=== PATIENT | female | born 1985 | race Caucasian/White ===

== ENCOUNTER → 2018-07-18 09:35 | Outpatient (CLI) | payer OTHER, MEDICAID, SELFPAY ==
--- NOTE | 2018-07-18 | DI.US.S_ITS ---
PROCEDURE: US OB <= 14 WEEKS FETUS INDICATIONS: SIZE AND DATES OUTSIDE/PRIOR DATING DATA: Last menstrual period (LMP): 05/27/18. LMP-based estimated date of delivery (KADEEM): 03/03/19. First dating scan (date and location): 07/18/18. Estimated date of delivery (KADEEM) from first dating scan: 03/06/18. TECHNIQUE: Real-time scanning was performed of the fetus and maternal pelvic organs, with image documentation. Endovaginal scanning was also performed to better visualize the fetus and maternal ovaries. COMPARISON: None. FINDINGS: Embryo: Sarita-rump length measures 1.0 cm corresponding to 7 weeks 0 days. Heart rate measures 132 beats per minute. Perigestational site bleed side measuring 1.7 x 1.2 x 2.7 cm. Measurement variability in dating: +/- 4 weeks by LMP, +/- 7 days by mean sac diameter (use before 6 weeks gestation if crown-rump length not able to be measured), +/- 5 days by crown-rump length (up to 8 weeks 6 days gestation), +/- 7 days by crown-rump length (up to 13 weeks 6 days gestation). Maternal organs: Ovaries within normal limits, with right corpus luteal cyst measuring roughly 2.4 cm. Limited images through the kidneys demonstrate no hydronephrosis. IMPRESSION: 1. 7.0 day single living IUP and perigestational sac bleed present. Dictated by: Sanjiv Mederos A Interpreted: Alma Summers MD on 07/18/2018 at 13:19 Approved by: Alma Summers MD, PhD on 07/18/2018 at 13:26
== END ==
PROVIDERS: Family Provider Family Medicine; PCP Family Medicine; Visit Provider Family Medicine
DX: Z34.91 Encounter for supervision of normal pregnancy, unspecified, first trimester (principal); Z3A.01 Less than 8 weeks gestation of pregnancy
CPT/HCPCS: 76801; 76830

== ENCOUNTER → 2018-10-11 10:37 | Outpatient (CLI) | payer OTHER, MEDICAID, SELFPAY ==
--- NOTE | 2018-10-11 | DI.US.S_ITS ---
PROCEDURE: US OB >= 14 WEEKS FETUS INDICATIONS: ANATOMY SCAN OUTSIDE/PRIOR DATING DATA: Last menstrual period (LMP): 05/27/18. LMP-based estimated date of delivery (KADEEM): 03/03/19. First dating scan (date and location): 07/18/18 [facility]. Estimated date of delivery (KADEEM) from first dating scan: 03/06/19. TECHNIQUE: Real-time scanning was performed of the fetus, with image documentation and biometric measurements. Endovaginal scanning: None COMPARISON: [facility], , OB <= 14 WEEKS FETUS, 07/18/2018, 10:02. FINDINGS: General: A single living intrauterine gestation is present. Presentation: Breech Placenta: Placental position is posterior, without previa. Amniotic fluid index: 13.4 cm, normal range is 5-24 cm. heart rate: 147 beats per minute. Maternal cervical canal: 4.1 cm long. Normal lower limit is 2.5 cm. biometrics: Biparietal diameter: 4.7 cm, 20 week one day Head circumference: 17.2 cm, 19 weeks 6 days Abdominal circumference: 14.8 cm, 20 weeks zero day Femur length: 3.3 cm, 20 weeks one day Estimated gestational age from initial scan: not applicable. Composite gestational age from present scan: 20 week zero day Estimated weight and percentile: 330 g, 92% Measurement variability for biometric dating: +/- 7 days from 14 weeks to 15 weeks 6 days gestation, +/- 10 days from 16 weeks to 21 weeks 6 days gestation, +/- 2 weeks from 22 weeks to 27 weeks 6 days gestation, +/- 3 weeks for 28 weeks gestation or later. weight reference: 4500 g or EFW >90/95% is considered macrosomia or large for gestational age. EFW <10% is small for gestational age. EFW 5% or less is considered intra-uterine growth restriction. Anatomic survey: Neuro: Ventricles are non-dilated at less than 10 mm. Cisterna magna is normal at 3-11 mm. Cerebellum is normal in size and morphology. Nuchal skin fold: Normal at less than 6 mm between 14-21 weeks gestational age. Face: Nose and lips, facial profile are normal. Spine: No evidence for spina bifida. Heart: 4-chambered heart is present, with normal ventricular outflow tracts. Diaphragm: Diaphragm is intact. Stomach: Left-sided stomach is present. Kidneys: No hydronephrosis. Normal is less than 5 mm in 2nd trimester, less than 7 mm in 3rd trimester. Cord: 3-vessel cord has orthotopic insertion. Bladder: Normal in size. Extremities: All 4 extremities identified. Again noted is mild to moderate maternal right-sided hydronephrosis. IMPRESSION: 1. Single with fetus in breech presentation. heart rate is 147 beats per minute. Normal growth with normal anatomy. 2. Mild to moderate maternal right hydronephrosis. Dictated by: Bonilla Schroeder M.D. on 10/11/2018 at 12:19 Approved by: Bonilla Schroeder M.D. on 10/11/2018 at 12:27
== END ==
PROVIDERS: Family Provider Family Medicine; PCP Family Medicine; Visit Provider Family Medicine
DX: Z36.89 Encounter for other specified antenatal screening (principal); Z3A.20 20 weeks gestation of pregnancy; O99.89 Other specified diseases and conditions complicating pregnancy, childbirth and the puerperium; N13.30 Unspecified hydronephrosis
CPT/HCPCS: 76811

== ENCOUNTER 2018-11-22 09:52 | Emergency (ER) | payer OTHER, MEDICAID, SELFPAY ==
[2018-11-22 10:00] VITALS: BP 114/74; PULSE 85; RESP 15; TEMP 36.7; O2SAT 100; BMI 27.4
--- NOTE | 2018-11-22 10:32 | ED_ITS ---
HPI - Nausea/Vomiting/Diarrhea General Chief complaint: Nausea/Vomiting/Diarrhea Stated complaint: VOMITING DIARRHEA Time Seen by Provider: 11/22/18 10:19 Source: patient Mode of arrival: ambulatory Limitations: no limitations History of Present Illness HPI Narrative: Patient is a 33-year-old female presenting with vomiting and diarrhea. This is been ongoing since yesterday. She is also 25 weeks she has some abdominal cramping but does not feel like it is uterine. She has no vaginal bleeding. He does have some right-sided pain but she has had persistent ongoing right-sided pain because she says her ureter is kinked. She denies any fever or chills MD complaint: nausea, vomiting and diarrhea Onset (ago): day(s) Description of Vomiting: watery Description of Diarrhea: watery Associated Abdominal Pain: Yes Related Data Home Medications Medication Instructions Recorded Confirmed PNV cmb#95-ferrous fumarate-FA 1 tab PO QDAY #0 06/09/12 11/22/18 [] Vitamin B-12 1 tab PO DAILY 11/22/18 11/22/18 Vitamin D3 1 cap PO DAILY 11/22/18 11/22/18 iron 1 tab PO DAILY 11/22/18 11/22/18 sertraline 100 mg PO DAILY 11/22/18 11/22/18 Previous Rx's Medication Instructions Recorded ondansetron 4 mg PO Q6-8H PRN #10 tab 11/22/18 Allergies Allergy/AdvReac Type Severity Reaction Status Date / Time tramadol [TRAMADOL] AdvReac Unknown Verified 11/22/18 10:00 Review of Systems Review of Systems GENERAL: Denies chills, fatigue, malaise, fever, sweats, travel HEENT: Denies sinus pain, ear pain, sore throat, difficulty swallowing, neck pain RESPIRATORY: Denies dyspnea, cough, wheezing, hemoptysis, sputum. CARDIOVASCULAR: Denies chest pain, palpitations, orthopnea, edema GASTROINTESTINAL: See HPI : Denies dysuria, frequency, incontinence, hematuria, urinary retention, flank pain. MUSCULOSKELETAL: Denies weakness, joint pain, or bony pain SKIN: No rash, no erythema, no pruritus NEUROLOGIC: Denies weakness, dizziness, headache, numbness, change in speech, confusion PSYCHIATRIC: No concerning psychosocial issues. 12 point review of systems is negative except for those stated above and HPI PFSH Social History Smoking Status: Never smoker Social History Smoking Status: Never smoker Exam Initial Vital Signs Initial Vital Signs: Vital Signs Temperature 98.1 F 11/22/18 10:00 Pulse Rate 85 11/22/18 10:00 Respiratory Rate 15 11/22/18 10:00 Blood Pressure 114/74 11/22/18 10:00 Pulse Oximetry 100 11/22/18 10:00 GENERAL: Well-appearing, well-nourished and in no acute distress. HEENT: Head atraumatic,EOMI, pupils reactive, CARDIOVASCULAR: Regular rate and rhythm without murmurs, rubs or gallops. RESPIRATORY: Breath sounds equal bilaterally, no wheezes rales or rhonchi. ABDOMEN: Soft gravid, mild right-sided no right upper quadrant pain no guarding no rebound mild right flank pain : No CVA tenderness EXTREMITIES: Normal range of motion, no clubbing or edema. Neurovascularly intact NEUROLOGICAL: Alert and oriented x4.Normal gait and speech. Cranial nerves II through XII grossly intact. SKIN: Warm, dry, no laceration, no petechiae, no rashes or lesions. Course Orders Ordered: ED Orders 11/22/18 10:40 Complete Blood Count AUTO DIFF Stat Comprehensive Metabolic Panel Stat Lipase Stat Discontinued Medications Sodium Chloride (Normal Saline 0.9%) 1,000 mls @ 1,000 mls/hr IV CONT VENTURA Last Infusion: 11/22/18 12:08 Dose: 0 mls/hr Admin: 11/22/18 10:59 Dose: 1,000 mls/hr Ondansetron HCl (Zofran) 4 mg IV NOW ONE Stop: 11/22/18 10:24 Last Admin: 11/22/18 10:59 Dose: 4 mg Vital Signs - 8 hr 11/22/18 11:09 11/22/18 12:30 11/22/18 14:45 Pulse Rate 78 79 61 Respiratory Rate 16 17 Blood Pressure [Left Arm] 106/78 103/67 153/94 H Pulse Oximetry 98 97 99 MDM - Nausea/Vomiting/Diarrhea Lab Data Attestation: I reviewed the patient's lab results. Result diagrams: 11/22/18 10:40 11/22/18 10:40 Lab Results 11/22/18 11/22/18 Range/Units 10:40 10:40 WBC 9.6 (4.5-11.0) X10^3/uL RBC 4.51 (4.0-5.2) X10^6/uL Hgb 13.4 (12.0-16.0) g/dL Hct 39.6 (36-46) % MCV 87.7 (80-100) fL MCH 29.7 (26-34) PG MCHC 33.8 (30-36) % RDW 13.8 (11.6-14.8) % Plt Count 289 (150-400) X10^3/uL Neut % (Auto) 80.3 H (50-75) % Lymph % (Auto) 14.8 L (25-40) % [place] % (Auto) 3.9 (3-14) % Eos % (Auto) 0.5 L (2-4) % Baso % (Auto) 0.5 (0-2) % Neut # (Auto) 7700 H (6765-9874) /uL Lymph # (Auto) 1400 (3658-1050) /uL [place] # (Auto) 400 (0-900) /uL Eos # (Auto) 0 (0-450) /uL Baso # (Auto) 0 (0-100) /uL Sodium 136 L (137-145) mmol/L Potassium 3.5 (3.4-5.1) mmol/L Chloride 100 (98-107) mmol/L Carbon Dioxide 22 (22-32) mmol/L BUN 6 L (7-17) mg/dL Creatinine 0.50 L (0.52-1.04) mg/dL Estimated GFR > 60.0 (>60) mL/min BUN/Creatinine Ratio 12.0 (6-22) Glucose 79 (70-100) mg/dL Calcium 9.6 (8.4-10.2) mg/dL Total Bilirubin 0.5 (0.2-1.3) mg/dL AST 36 (14-36) IU/L ALT 39 (9-52) IU/L Alkaline Phosphatase 93 (38-126) U/L Total Protein 8.6 H (6.3-8.2) g/dL Albumin 4.6 (3.5-5.0) g/dL Globulin 4.0 (1.7-4.1) g/dL Albumin/Globulin Ratio 1.2 (1.0-2.8) Lipase 36 (23-300) U/L Urine Dip Bedside Urine Glucose Negative Bedside Urine Bilirubin - Negative Bedside Urine Ketone +++ 80 Urine Specific [place] 1.020 Bedside Urine Occult Blood - Negative Bedside Urine pH 6.0 Bedside Urine Protein +/- 15 Bedside Urine Urobilinogen - Negative Bedside Urine Nitrite - Negative Bedside Urine Leukocytes - Negative Esterase MDM Narrative Medical decision making narrative: heart tones are done and documented in nursing notes. After IV fluids patient is urinating her pain is much improved no longer having abdominal cramping more epigastric hunger pain she feels like she is ready and able to eat. Discussed oral rehydration in increasing fluids. Discharge Plan Departure Patient Disposition: Home Clinical Impression: Gastroenteritis Discharge Date/Time: 11/22/18 14:20 Interventions: ED Discharge Assessment Last Done: 11/22/18 14:20 Instructions: DI for Viral Gastroenteritis -- Adult Activity Restrictions/Additional Instructions: *YOU HAVE BEEN DIAGNOSED WITH GASTROENTERITIS *WHAT TO DO: INCREASE FLUID INTAKE, GATORADE, JELL-O, POPSICLES EXCEPT *CONTINUE TO TAKE MEDICATIONS DIRECTED ZOFRAN 4 MG EVERY 6-8 HOURS IF NEEDED FOR NAUSEA VOMITING--> FAXED TO [facility] *FOLLOW UP WITH YOUR PRIMARY CARE PROVIDER IN 2-3 DAYS *RETURN TO ER IF YOU SHOULD HAVE INABILITY TO TOLERATE FLUIDS, INCREASED ABDOMINAL PAIN, VAGINAL BLEEDING OR ANY NEW, WORSENING OR CONCERNING SYMPTOMS Prescriptions: New ondansetron 4 mg tablet,disintegrating 4 mg PO Q6-8H PRN (Reason: nausea and vomiting) Qty: 10 RF: 0 No Action PNV cmb#95-ferrous fumarate-FA [] 28 mg iron- 800 mcg Tablet 1 tab PO QDAY Qty: 0 RF: 0 sertraline 100 mg Tablet 100 mg PO DAILY RF: 0 Vitamin B-12 1 tab PO DAILY RF: 0 Vitamin D3 1 cap PO DAILY RF: 0 iron 1 tab PO DAILY RF: 0 Referrals: Michelle Mcconnell MD [Physician] - Daphney Bahena MD [Primary Care Provider] -
[2018-11-22] MEDS: ONDANSETRON 4 MG/2 ML INJ IV (10:59)
[2018-11-22] MEDS: SODIUM CHLORIDE 0.9% 1,000 ML 1000 ML IV (10:59)
[2018-11-22 11:03] LABS: Add Manual Diff / Slide Review NO; Basophils Absolute Auto 0 /uL (0-100); Basophils Percent Auto 0.5 % (0-2); Eosinophils Absolute Auto 0 /uL (0-450); Eosinophils Percent Auto 0.5 % (2-4); Hematocrit 39.6 % (36-46); Hemoglobin 13.4 g/dL (12.0-16.0); Lymphocytes Absolute Auto 1400 /uL (1100-4500); Lymphocytes Percent Auto 14.8 % (25-40); Mean Corpuscular HGB Conc 33.8 % (30-36); Mean Corpuscular Hemoglobin 29.7 PG (26-34); Mean Corpuscular Volume 87.7 fL (80-100); Monocytes Absolute Auto 400 /uL (0-900); Monocytes Percent Auto 3.9 % (3-14); Neutrophils Absolute Auto 7700 /uL (1500-7000); Neutrophils Percent Auto 80.3 % (50-75); Platelet Count 289 X10^3/uL (150-400); Red Blood Cell Count 4.51 X10^6/uL (4.0-5.2); Red Cell Distribution Width 13.8 % (11.6-14.8); White Blood Cell Count 9.6 X10^3/uL (4.5-11.0)
--- NOTE | 2018-11-22 11:08 | PC.NURSE ---
pt 25 weeks , AM0. pt reports, onset of diarrhea yesterday 10 times, with bright red blood , also with hemorhoids. denies fever, pt with nausea and vomiting x3. pt treated with apple sauce, water,crackers. c/o anterior abdominal , with distention and rectal irritations from diarrhea.
[2018-11-22 11:09] VITALS: BP 106/78; PULSE 78; RESP 16; O2SAT 98
--- NOTE | 2018-11-22 11:11 | PC.NURSE ---
by tejas luo rn.
[2018-11-22 11:13] LABS: Alanine Aminotransferase 39 IU/L (9-52); Albumin 4.6 g/dL (3.5-5.0); Albumin Globulin Ratio 1.2 (1.0-2.8); Alkaline Phosphatase 93 U/L (38-126); Aspartate Aminotransferase 36 IU/L (14-36); Bilirubin Total 0.5 mg/dL (0.2-1.3); Blood Urea Nitrogen 6 mg/dL (7-17); Calcium 9.6 mg/dL (8.4-10.2); Carbon Dioxide 22 mmol/L (22-32); Chloride 100 mmol/L (98-107); Estimated Glomerular Filt Rate > 60.0 mL/min (>60); Glucose 79 mg/dL (70-100); HEMOLYSIS 24 (0-50); Lipase 36 U/L (23-300); Potassium 3.5 mmol/L (3.4-5.1); Sodium 136 mmol/L (137-145); Total Protein 8.6 g/dL (6.3-8.2)
--- NOTE | 2018-11-22 11:13 | PC.NURSE ---
pt reports, legal name now is Barrie Waldron)
[2018-11-22 12:30] VITALS: BP 103/67; PULSE 79; O2SAT 97
[2018-11-22 14:45] VITALS: BP 153/94; PULSE 61; RESP 17; O2SAT 99
== END 2018-11-22 14:20 | disposition home or self-care (01) ==
PROVIDERS: Emergency Provider Emergency Medicine; Family Provider Family Medicine; PCP Family Medicine
DX: K52.9 Noninfective gastroenteritis and colitis, unspecified (principal)
CPT/HCPCS: 80053; 81003; 83690; 85025; 96361; 96374; 99283; 99284; J2405

== ENCOUNTER 2019-01-02 16:48 | Outpatient (CLI) | payer OTHER, MEDICAID, SELFPAY ==
[2019-01-02 18:04] LABS: Bacteria Urine None Seen; RBC Urine None Seen (0-5/HPF); WBC Urine None Seen (0-5/HPF)
[2019-01-02 18:06] LABS: Appearance Urine UA CLEAR; Bilirubin Urine UA NEGATIVE (NEGATIVE); Color Urine UA YELLOW; Glucose Urine UA NEGATIVE (Negative); Ketones Urine UA NEGATIVE (NEGATIVE); Leukocyte Esterase Urine UA NEGATIVE (NEGATIVE); Nitrite Urine UA NEGATIVE (Negative); Occult Blood Urine UA TRACE-LYSED (Negative); Protein Urine UA NEGATIVE (Negative); Urobilinogen Urine UA 0.2 E.U./dL (0.2)
[2019-01-02 18:17] LABS: Culture Indicated Urine Cult Not Indicated; Squamous Epithelial Cell Urine 0-1 /HPF; Urine Comments Microscopic Normal
== END 2019-01-02 18:00 | disposition home or self-care (01) ==
LOC: OB 01-03 15:37
PROVIDERS: Family Provider Family Medicine; PCP Family Medicine; Visit Provider Family Medicine
DX: Z34.83 Encounter for supervision of other normal pregnancy, third trimester (principal); R10.9 Unspecified abdominal pain; Z3A.31 31 weeks gestation of pregnancy
CPT/HCPCS: 59025; 81001; G0378; G0379

== ENCOUNTER → 2019-02-02 16:26 | Outpatient (REF) | payer OTHER, MEDICAID, SELFPAY | LOC: LAB 16:26 | PROVIDERS: Family Provider Family Medicine; PCP Family Medicine; Visit Provider Family Medicine | DX: Z34.03 Encounter for supervision of normal first pregnancy, third trimester (principal) | CPT/HCPCS: 87081 ==

== ENCOUNTER → 2019-02-15 08:03 | Outpatient (CLI) | payer OTHER, MEDICAID, SELFPAY ==
--- NOTE | 2019-02-15 | DI.US.S_ITS ---
PROCEDURE: US OB LIMITED INDICATIONS: SIZE GREATER THAN DATES OUTSIDE/PRIOR DATING DATA: Last menstrual period (LMP): 05/27/18. LMP-based estimated date of delivery (KADEEM): 03/03/19. First dating scan (date and location): 07/18/18. Estimated date of delivery (KADEEM) from first dating scan: 03/06/19. TECHNIQUE: Real-time scanning was performed of the fetus, with image documentation and biometric measurements. Endovaginal scanning: Not performed. COMPARISON: 10/11/18. FINDINGS: General: A single living intrauterine gestation is present. Presentation: Vertex. Placenta: Placental position is posterior, without previa. Amniotic fluid index: 14.6 cm, normal range is 5-24 cm. the largest vertical fluid pocket measures 4.7 cm. heart rate: 145 beats per minute. Maternal cervical canal: 4.1 cm long. Normal lower limit is 2.5 cm. biometrics: Biparietal diameter: 9.28 cm which correlates with approximately 37 weeks and 5 days. Head circumference: 33.18 cm which correlates with approximately 37 weeks and 6 days. Abdominal circumference: 33.55 cm which correlates with approximately 37 weeks and 3 days. Femur length: 7.15 cm which correlates with approximately 36 weeks and 4 days. Estimated gestational age from initial scan: not applicable. Composite gestational age from present scan: 37 weeks and 3 days Estimated weight and percentile: 3181 g which correlates with approximately the 59th percentile based off estimated gestational age. Measurement variability for biometric dating: +/- 7 days from 14 weeks to 15 weeks 6 days gestation, +/- 10 days from 16 weeks to 21 weeks 6 days gestation, +/- 2 weeks from 22 weeks to 27 weeks 6 days gestation, +/- 3 weeks for 28 weeks gestation or later. weight reference: 4500 g or EFW >90/95% is considered macrosomia or large for gestational age. EFW <10% is small for gestational age. EFW 5% or less is considered intra-uterine growth restriction. Other: Not applicable. IMPRESSION: Single living intrauterine gestation with an estimated sonographic gestational age of approximately 37 weeks and 3 days versus approximately 37 weeks and 2 days by last menstrual period. Estimated weight is approximately 3[address] the fetus in the 59th percentile for gestational age. Dictated by: Jose Beyer M.D. on 02/15/2019 at 17:19 Approved by: Jose Beyer M.D. on 02/15/2019 at 17:24
== END ==
PROVIDERS: PCP Family Medicine; Visit Provider Family Medicine
DX: O36.63X0 Maternal care for excessive fetal growth, third trimester, not applicable or unspecified (principal); Z3A.37 37 weeks gestation of pregnancy
CPT/HCPCS: 76815

== ENCOUNTER 2019-02-20 01:40 | Inpatient (IN) | payer OTHER, MEDICAID, SELFPAY ==
[2019-02-20 04:10] VITALS: TEMP 37
[2019-02-20] MEDS: MORPHINE 10 MG/ML INJ 5 MG IM (04:10)
[2019-02-20 04:25] LABS: Add Manual Diff / Slide Review NO; Basophils Absolute Auto 0 /uL (0-100); Basophils Percent Auto 0.4 % (0-2); Eosinophils Absolute Auto 0 /uL (0-450); Eosinophils Percent Auto 0.4 % (2-4); Hematocrit 39.2 % (36-46); Hemoglobin 13.3 g/dL (12.0-16.0); Lymphocytes Absolute Auto 2300 /uL (1100-4500); Lymphocytes Percent Auto 23.7 % (25-40); Mean Corpuscular HGB Conc 33.9 % (30-36); Mean Corpuscular Hemoglobin 29.3 PG (26-34); Mean Corpuscular Volume 86.6 fL (80-100); Monocytes Absolute Auto 500 /uL (0-900); Monocytes Percent Auto 5.2 % (3-14); Neutrophils Absolute Auto 6900 /uL (1500-7000); Neutrophils Percent Auto 70.3 % (50-75); Platelet Count 159 X10^3/uL (150-400); Red Blood Cell Count 4.53 X10^6/uL (4.0-5.2); Red Cell Distribution Width 13.9 % (11.6-14.8); White Blood Cell Count 9.9 X10^3/uL (4.5-11.0)
[2019-02-20 05:04] VITALS: BP 134/90
[2019-02-20] MEDS: LACTATED RINGERS 1,000 ML 100 ML IV ×3 (06:31→08:55)
--- NOTE | 2019-02-20 08:23 | PM.OBPNLAB ---
Date/Time Date Patient Seen: 02/20/19 Time Patient Seen: 08:23 Pain Control Pain control: epidural Pelvic Exam Dilation (cm): 4 Effacement (%): 100 station: 0 Amniotic membrane status: Intact Comments: AROM clear 805 Contractions Date/Time contractions began: 2100 on 02/19/19 Contractions on admission: regular Monitor mode: External Contraction pattern: Regular Contraction intensity: Strong/Firm Status status: Category l Heart Rate Baseline: 130 Monitor Accelerations: Present Monitor Decelerations: Absent Monitor Variability: Moderate Assessment and Plan Assessment: active labor Plan: continuous present management
[2019-02-20] MEDS: OXYTOCIN PREMIX 30 UNIT/500 ML PLAST..BAG IV (10:36)
--- NOTE | 2019-02-20 11:40 | P.PCNOB_ITS ---
Events: No Care Intrapartal events: None Cervical ripening method: none Induction method: none Delivery augmentation: rupture of membranes Delivery monitor: external FHT Route of delivery: L&D Laceration Description: Perineal - 2nd Degree Delivery repair: chromic Estimated blood loss (mL): 200 Anesthesia type: Epidural Narrative: Identifying data: 33-year-old at 38 weeks gestation via LMP and 1st trimester ultrasound who presents to Labor and delivery with complaints of painful regular uterine contractions. Patient was found to be in early labor and was admitted. She was given 5 mg of IM morphine had some sleep and relaxed and then contractions increased in intensity. 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 She had some gastroenteritis during but otherwise unremarkable. Stage I: 2 hours and 49 minutes She is felt to be in active labor at 7:45 a.m. when she was found to be 4 cm dilated 100% effaced and -1 station with intact bag of water. Epidural was placed at 745 minutes patient was comfortable. Artificial rupture membranes was performed at 8:05 a.m. for augmentation of labor and resulted in clear fluid. This was 2 hours and 27 minutes prior to delivery. Mom O positive with GBS negative status. External tocometer was used throughout stage I and 2. External heart monitor was used throughout stage IA baseline heart rate in the 130s with moderate variability. There was periods of decreased variability after morphine. There were accelerations and no significant decelerations. Epidural was adequate providing excellent comfort. Stage II lasted 12 minutes. Patient was noted to be complete at 10:00 a.m.. She was allowed to labor down until 10 20. She is thin Jaqueline had 3 pushes and did excellent job of bringing the baby down. Baby was in DEJUAN presentation. External heart monitor was used during this stage showing heart rate in the 1 teens to 140. With the last push decelerations into the 70s and so push w as continued and head was delivered without difficulty. No evidence of nuchal cord and anterior and posterior shoulder were delivered without difficulty BB was placed on mom's chest and was vigorous at delivery. Apgars were 9 at 1 minute and 9 at 5 minutes. Weight is pending at this time. Baby was recovered on mom's chest. Cord was allowed a pulse 8 then double clamped and cut. Cord blood was sent for analysis. Stage III lasted 3 minutes Normal spontaneous vaginal delivery of a moderately calcified placenta with a central cord insertion. Three-vessel cord. Intact placenta. Pitocin was run in at the time of delivery of the placenta. There was 200 cc of blood loss. There is a very small second-degree perineal laceration that was repaired in the usual fashion with 3 0 and 2 0 chromic. There were no cervical or vaginal sidewall tears. At the time this dictation both mom and baby are in stable condition. Plan for aftercare: routine care
--- NOTE | 2019-02-20 11:40 | PM.OBHP.1 ---
OB HPI History of Present Condition Chief complaint: EVALUATION OF LABOR Narrative: Marian Sood is a 33 year old female G tube P1 at 38 and 3 7 weeks estimated gestational age based on a PTC of 03/03/2019 based on a 1st trimester ultrasound and last menstrual period of 03/27/2018. This was a planned . Patient complains of onset a uterine contractions fairly abruptly at 9:00 p.m. on the day prior to delivery. Contractions increased in frequency and intensity and patient contacted me at 12:30 p.m. and I instructed her to go into labor and delivery. There was no history of ruptured membranes. Contractions persisted and at the time arrival to the labor and delivery unit she was having contractions every 2-4 minutes and was found to be 2 cm dilated 80% effaced and -1 station. Patient was felt to be in early labor and was admitted to the hospital. Past medical history: Anxiety Depression HSV 2 Previous concussion Cervical dysplasia Medications: vitamins and Valtrex prophylaxis All: tramadol sensitivity; PSH: 1. 06/2012 cholecystectomy 2. septorhinoplasty Past OB history: 1. 6 03/2012 40 weeks gestation normal spontaneous vaginal delivery of a viable male weighing 7 lb 10 oz forceps assisted at [facility] with epidural Health Related behavior: No alcohol, no tobacco, no illicit drugs Family history no congenital defects care was begun early on patient had a total of 14 visits. A 15 lb weight gain. Blood pressures were good 104-126/60-80 Serology: O positive, rubella immune, syphilis, hepatitis-B, hepatitis-C, HIV, negative. GC and chlamydia negative. Pap normal. GBS negative. Status post flu shot 09/07/2018. Tdap 12/13/2018. Glucose tolerance test was 138 and hemoglobin A1c was 4.5. Patient had only 9 lb weight gain after 28 weeks. She monitored her sugar and carbohydrate intake. But we did not check blood sugars. Sequential screen negative. Twenty week ultrasound showed normal anatomy Evaluation Evaluation Laboratory results: Laboratory Tests 02/20/19 02/20/19 03:40 03:40 WBC 9.9 RBC 4.53 Hgb 13.3 Hct 39.2 MCV 86.6 MCH 29.3 MCHC 33.9 RDW 13.9 Plt Count 159 Neut % (Auto) 70.3 Lymph % (Auto) 23.7 L [place] % (Auto) 5.2 Eos % (Auto) 0.4 L Baso % (Auto) 0.4 Neut # (Auto) 6900 Lymph # (Auto) 2300 [place] # (Auto) 500 Eos # (Auto) 0 Baso # (Auto) 0 Blood Type O Positive Antibody Screen Negative [facility] Social History Smoking Status: Former smoker Social History Smoking Status: Former smoker Meds Home Medications Medication Instructions Recorded Confirmed Type PNV cmb#95-ferrous fumarate-FA 1 tab PO QDAY #0 06/09/12 02/20/19 History [] sertraline 100 mg PO DAILY 11/22/18 02/20/19 History Allergies Allergy/AdvReac Type Severity Reaction Status Date / Time tramadol [TRAMADOL] AdvReac Mild Nausea Verified 02/20/19 05:08 Review of Systems Review of Systems No swelling No history of rupture membranes, no vaginal bleeding, Baby has been active Sporadic Headaches No abdominal pain other than contractions All systems reviewed & are unremarkable except as noted in HPI and below Exam Vital Signs (past 8 hours): - 02/20/19 04:10 02/20/19 05:04 Temperature 98.6 F Blood Pressure 134/90 Narrative Exam Narrative: Alert and oriented in no apparent distress, vital signs stable. Patient resting comfortably with epidural HEENT: Unremarkable Neck: Supple without adenopathy Chest: Clear to auscultation without wheezes rhonchi or crackles Cor: Regular rate and rhythm without murmur Abdomen: Gravid, vertex, estimated weight 7 lb to 7.5 lb Extremities: No edema, DTRs are intact Cervical exam 4 cm, 100% effaced, 0 station, intact bag of water heart tones baseline 130s with moderate variability with accelerations and no decelerations, category 1 tracing Uterine contractions every 2-4 minutes moderate to palpation Objective Labs Result Diagrams: 02/20/19 03:40 Labs: Laboratory Results - last 24 hr 02/20/19 02/20/19 03:40 03:40 WBC 9.9 RBC 4.53 Hgb 13.3 Hct 39.2 MCV 86.6 MCH 29.3 MCHC 33.9 RDW 13.9 Plt Count 159 Neut % (Auto) 70.3 Lymph % (Auto) 23.7 L [place] % (Auto) 5.2 Eos % (Auto) 0.4 L Baso % (Auto) 0.4 Neut # (Auto) 6900 Lymph # (Auto) 2300 [place] # (Auto) 500 Eos # (Auto) 0 Baso # (Auto) 0 Blood Type O Positive Antibody Screen Negative Assessment and Plan Assessment and Plan Assessment and Plan narrative: 33-year-old at 38 and 3 7 weeks estimated gestational age in active labor Expected management Continue with external tocometer and heart monitor AROM at 8:05 a.m. clear fluid O positive, rubella immune GBS negative Status post Tdap and flu shot Subsequent will screen negative Time Spent with Patient Total time spent with greater than 50% in coordination of care (as documented) at patient's floor/unit and/or counseling patient:: 25 - 35 minutes
--- NOTE | 2019-02-20 11:44 | P.HPOB_ITS ---
OB HPI History of Present Condition Chief complaint: EVALUATION OF LABOR Narrative: Marian Sood is a 33 year old female G tube P1 at 38 and 3 7 weeks estimated gestational age based on a PTC of 03/03/2019 based on a 1st trimester ultrasound and last menstrual period of 03/27/2018. This was a planned . Patient complains of onset a uterine contractions fairly abruptly at 9:00 p.m. on the day prior to delivery. Contractions increased in frequency and intensity and patient contacted me at 12:30 p.m. and I instructed her to go into labor and delivery. There was no history of ruptured membranes. Contractions persisted and at the time arrival to the labor and delivery unit she was having contractions every 2-4 minutes and was found to be 2 cm dilated 80% effaced and -1 station. Patient was felt to be in early labor and was admitted to the hospital. Past medical history: Anxiety Depression HSV 2 Previous concussion Cervical dysplasia Medications: vitamins and Valtrex prophylaxis All: tramadol sensitivity; PSH: 1. 06/2012 cholecystectomy 2. septorhinoplasty Past OB history: 1. 6 03/2012 40 weeks gestation normal spontaneous vaginal delivery of a viable male weighing 7 lb 10 oz forceps assisted at [facility] with epidural Health Related behavior: No alcohol, no tobacco, no illicit drugs Family history no congenital defects care was begun early on patient had a total of 14 visits. A 15 lb weight gain. Blood pressures were good 104-126/60-80 Serology: O positive, rubella immune, syphilis, hepatitis-B, hepatitis-C, HIV, negative. GC and chlamydia negative. Pap normal. GBS negative. Status post flu shot 09/07/2018. Tdap 12/13/2018. Glucose tolerance test was 138 and hemoglobin A1c was 4.5. Patient had only 9 lb weight gain after 28 weeks. She monitored her sugar and carbohydrate intake. But we did not check blood sugars. Sequential screen negative. Twenty week ultrasound showed normal anatomy Evaluation Evaluation Laboratory results: Laboratory Tests 02/20/19 02/20/19 03:40 03:40 WBC 9.9 RBC 4.53 Hgb 13.3 Hct 39.2 MCV 86.6 MCH 29.3 MCHC 33.9 RDW 13.9 Plt Count 159 Neut % (Auto) 70.3 Lymph % (Auto) 23.7 L Wilcox % (Auto) 5.2 Eos % (Auto) 0.4 L Baso % (Auto) 0.4 Neut # (Auto) 6900 Lymph # (Auto) 2300 Wilcox # (Auto) 500 Eos # (Auto) 0 Baso # (Auto) 0 Blood Type O Positive Antibody Screen Negative [facility] Social History Smoking Status: Former smoker Social History Smoking Status: Former smoker Meds Home Medications Medication Instructions Recorded Confirmed Type PNV cmb#95-ferrous fumarate-FA 1 tab PO QDAY #0 06/09/12 02/20/19 History [] sertraline 100 mg PO DAILY 11/22/18 02/20/19 History Allergies Allergy/AdvReac Type Severity Reaction Status Date / Time tramadol [TRAMADOL] AdvReac Mild Nausea Verified 02/20/19 05:08 Review of Systems Review of Systems No swelling No history of rupture membranes, no vaginal bleeding, Baby has been active Sporadic Headaches No abdominal pain other than contractions All systems reviewed & are unremarkable except as noted in HPI and below Exam Vital Signs (past 8 hours): - 02/20/19 04:10 02/20/19 05:04 Temperature 98.6 F Blood Pressure 134/90 Narrative Exam Narrative: Alert and oriented in no apparent distress, vital signs stable. Patient resting comfortably with epidural HEENT: Unremarkable Neck: Supple without adenopathy Chest: Clear to auscultation without wheezes rhonchi or crackles Cor: Regular rate and rhythm without murmur Abdomen: Gravid, vertex, estimated weight 7 lb to 7.5 lb Extremities: No edema, DTRs are intact Cervical exam 4 cm, 100% effaced, 0 station, intact bag of water heart tones baseline 130s with moderate variability with accelerations and no decelerations, category 1 tracing Uterine contractions every 2-4 minutes moderate to palpation Objective Labs Result Diagrams: 02/20/19 03:40 Labs: Laboratory Results - last 24 hr 02/20/19 02/20/19 03:40 03:40 WBC 9.9 RBC 4.53 Hgb 13.3 Hct 39.2 MCV 86.6 MCH 29.3 MCHC 33.9 RDW 13.9 Plt Count 159 Neut % (Auto) 70.3 Lymph % (Auto) 23.7 L Wilcox % (Auto) 5.2 Eos % (Auto) 0.4 L Baso % (Auto) 0.4 Neut # (Auto) 6900 Lymph # (Auto) 2300 Wilcox # (Auto) 500 Eos # (Auto) 0 Baso # (Auto) 0 Blood Type O Positive Antibody Screen Negative Assessment and Plan Assessment and Plan Assessment and Plan narrative: 33-year-old at 38 and 3 7 weeks estimated gestational age in active labor Expected management Continue with external tocometer and heart monitor AROM at 8:05 a.m. clear fluid O positive, rubella immune GBS negative Status post Tdap and flu shot Subsequent will screen negative Time Spent with Patient Total time spent with greater than 50% in coordination of care (as documented) at patient's floor/unit and/or counseling patient:: 25 - 35 minutes
[2019-02-20] MEDS: IBUPROFEN 600 MG TABLET PO ×2 (14:27→20:40)
[2019-02-20] MEDS: LANOLIN OINT 7 GM 1 APPLIC TOP (17:32)
[2019-02-20] MEDS: SERTRALINE 50 MG TABLET 100 MG PO (20:41)
[2019-02-20] MEDS: ACETAMINOPHEN 325 MG TABLET 650 MG PO (22:18)
[2019-02-21] MEDS: IBUPROFEN 600 MG TABLET PO ×2 (02:49→09:12)
[2019-02-21 06:32] LABS: Add Manual Diff / Slide Review NO; Basophils Absolute Auto 100 /uL (0-100); Basophils Percent Auto 0.8 % (0-2); Eosinophils Absolute Auto 100 /uL (0-450); Eosinophils Percent Auto 0.9 % (2-4); Hemoglobin 11.4 g/dL (12.0-16.0); Lymphocytes Absolute Auto 2200 /uL (1100-4500); Lymphocytes Percent Auto 23.7 % (25-40); Mean Corpuscular HGB Conc 34.5 % (30-36); Mean Corpuscular Hemoglobin 29.8 PG (26-34); Mean Corpuscular Volume 86.4 fL (80-100); Monocytes Absolute Auto 500 /uL (0-900); Monocytes Percent Auto 5.4 % (3-14); Neutrophils Absolute Auto 6600 /uL (1500-7000); Neutrophils Percent Auto 69.2 % (50-75); Platelet Count 125 X10^3/uL (150-400); Red Blood Cell Count 3.82 X10^6/uL (4.0-5.2); White Blood Cell Count 9.5 X10^3/uL (4.5-11.0)
[2019-02-21] MEDS: PRENATAL VIT,CALC/IRON/FOLIC 1 TABLET 1 TAB PO (09:10)
[2019-02-21] MEDS: METOPROLOL IR 50 MG TABLET PO (09:11)
[2019-02-21] MEDS: DOCUSATE 250 MG CAPSULE PO (09:12)
--- NOTE | 2019-02-21 13:05 | PM.OBDS.1 ---
Discharge Providers Date of admission: 02/20/19 01:40 Discharge Date: 02/21/19 Primary care physician: Daphney Bahena MD Consults: 02/20/19 11:22 Consult to Toe Closing Machine Tender Routine Comment: Discharge provider: Daphney Bahena MD Summary Date Patient Seen: 02/21/19 Time Patient Seen: 13:06 Procedures: Normal spontaneous Vaginal delivery Epidural Hospital Course: Patient discharged home in stable condition. Follow up with me on Tuesday to recheck blood pressure. I do not think she has preeclampsia. We discuss signs symptoms of concern her questions were answered. She received 1 dose of metoprolol. We will not continue it at home. She will call or concerns and will recheck on Tuesday. Discharge medications include vitamins, sertraline, Motrin. She will take her home medications. We discussed breast-feeding, signs symptoms of infection, bleeding and her questions were answered. Discharge activity pelvic rest. No heavy lifting. Peripartum Data Infant Delivery Method: Natural Vaginal Laceration description: Perineal - 2nd Degree complications: none Status at Discharge Cognitive/behavioral status at discharge: oriented Functional status at discharge: independent ambulation Time Spent with Patient Total time spent providing and/or coordinating discharge services: Greater than 30 minutes Objective Labs Result Diagrams: 02/21/19 06:06 Labs: Laboratory Results - last 24 hr 02/21/19 06:06 WBC 9.5 RBC 3.82 L Hgb 11.4 L Hct 33.0 L MCV 86.4 MCH 29.8 MCHC 34.5 RDW 14.0 Plt Count 125 L Neut % (Auto) 69.2 Lymph % (Auto) 23.7 L Kenton % (Auto) 5.4 Eos % (Auto) 0.9 L Baso % (Auto) 0.8 Neut # (Auto) 6600 Lymph # (Auto) 2200 [place] # (Auto) 500 Eos # (Auto) 100 Baso # (Auto) 100 Exam Narrative Exam Narrative: Afebrile vital signs are stable blood pressure this morning 132/90 was given metoprolol. Reviewed blood pressures which otherwise were normal HEENT unremarkable Chest: Clear auscultation without wheezes rhonchi or crackles Cor: Regular rate and rhythm without murmur Abdomen: Positive bowel sounds soft nontender. Uterus is firm and nontender and below the umbilicus Extremities: No edema, DTRs 2+ bilaterally at the patella. No clonus Discharge Plan Discharge Plan Patient Disposition: Home Discharge Med Rec/Prescriptions Prescriptions: Continued PNV cmb#95-ferrous fumarate-FA [] 28 mg iron- 800 mcg Tablet 1 tab PO QDAY Qty: 0 RF: 0 sertraline 100 mg Tablet 100 mg PO DAILY RF: 0 Follow up/Referrals: Daphney Bahena MD [Primary Care Provider] - Discharge Data Primary Care Provider: Daphney Bahena Attending Provider: Daphney Bahena Admit Date/Time: 02/20/19 01:40
[2019-02-21] MEDS: DERMOPLAST SPRAY 20% 60 ML 1 SPRAY TOP (13:08)
[2019-02-21 14:05] VITALS: BP 123/82; PULSE 72; RESP 16; TEMP 36.5
== END 2019-02-21 15:07 | disposition home or self-care (01) | DRG 807 ==
PROVIDERS: Admitting Provider Family Medicine; PCP Family Medicine; Visit Provider Family Medicine
DX: O98.32 Other infections with a predominantly sexual mode of transmission complicating childbirth (principal); Z37.0 Single live birth; A60.00 Herpesviral infection of urogenital system, unspecified; O70.1 Second degree perineal laceration during delivery; Z3A.38 38 weeks gestation of pregnancy
CPT/HCPCS: 01967; 36415; 59050; 85025; 86850; 86900; 86901; G0379; J2270; J2590

== ENCOUNTER → 2019-07-09 15:14 | Outpatient (CLI) | payer OTHER, MEDICAID, SELFPAY ==
--- NOTE | 2019-07-09 | DI.US.S_ITS ---
PROCEDURE: US THYROID INDICATIONS: HYPOTHYROIDISM TECHNIQUE: Real-time scanning was performed of the thyroid gland, with image documentation. COMPARISON: None. FINDINGS: Right: Thyroid lobe measures 4.4 x 1.4 x 1.4 cm, and is diffusely heterogeneous in echotexture. Left: Thyroid lobe measures 3.7 x 1.4 x 1.2 cm, and is diffusely heterogeneous in echotexture. Isthmus: 2.0 mm thick. IMPRESSION: Diffusely heterogeneous thyroid and no discrete thyroid nodules seen. Dictated by: Sanjiv KOHLER Interpreted: Rani Castro MD on 07/09/2019 at 17:14 Approved by: Rani Castro M.D. on 07/09/2019 at 17:23
== END ==
PROVIDERS: PCP Family Medicine; Visit Provider Family Medicine
DX: E20.9 Hypoparathyroidism, unspecified (principal)
CPT/HCPCS: 76536

== ENCOUNTER → 2020-01-07 10:37 | Outpatient (CLI) | payer OTHER, MEDICAID, SELFPAY ==
--- NOTE | 2020-01-07 | DI.US.S_ITS ---
PROCEDURE: US OB <= 14 WEEKS FETUS INDICATIONS: SIZE AND DATES OUTSIDE/PRIOR DATING DATA: Last menstrual period (LMP): 11/15/19. LMP-based estimated date of delivery (KADEEM): 08/21/20. First dating scan (date and location): 01/07/20. Estimated date of delivery (KADEEM) from first dating scan: 08/30/20. TECHNIQUE: Real-time scanning was performed of the fetus and maternal pelvic organs, with image documentation. Endovaginal scanning was also performed to better visualize the fetus and maternal ovaries. COMPARISON: [facility], , OB <= 14 WEEKS FETUS, 07/18/2018, 10:02. FINDINGS: Embryo: Walford-rump length measures 5 mm corresponding to 6 weeks 2 days. Artery measures 141 beats per minute. Measurement variability in dating: +/- 4 weeks by LMP, +/- 7 days by mean sac diameter (use before 6 weeks gestation if crown-rump length not able to be measured), +/- 5 days by crown-rump length (up to 8 weeks 6 days gestation), +/- 7 days by crown-rump length (up to 13 weeks 6 days gestation). Maternal organs: Ovaries within normal limits. Limited images through the kidneys demonstrate no hydronephrosis. IMPRESSION: 6 week 2 day tinajero intrauterine gestation. Dictated by: Sanjiv Mederos [facility] Interpreted: Jose Beyer MD on 01/07/2020 at 13:49 Approved by: Jose Beyer M.D. on 01/11/2020 at 15:11
== END ==
PROVIDERS: PCP Family Medicine; Referring Provider Family Medicine; Visit Provider Family Medicine
DX: Z36.87 Encounter for antenatal screening for uncertain dates (principal); Z3A.01 Less than 8 weeks gestation of pregnancy
CPT/HCPCS: 76801

== ENCOUNTER → 2020-04-08 08:36 | Outpatient (CLI) | payer OTHER, MEDICAID, SELFPAY ==
--- NOTE | 2020-04-08 | DI.US.S_ITS ---
PROCEDURE: OB >= 14 WEEKS FETUS INDICATIONS: 20 WEEK ANATOMICAL SURVEY OUTSIDE/PRIOR DATING DATA: Last menstrual period (LMP): 11/15/19. LMP-based estimated date of delivery (KADEEM): 08/21/20. First dating scan (date and location): 01/07/20. Estimated date of delivery (KADEEM) from first dating scan: 08/30/20.. TECHNIQUE: Real-time scanning was performed of the fetus, with image documentation and biometric measurements. Endovaginal scanning: No COMPARISON: [facility], OB <= 14 WEEKS FETUS, 01/07/2020, 11:00. [facility], OB >= 14 WEEKS FETUS, 10/11/2018, 10:53. FINDINGS: General: A single living intrauterine gestation is present. Presentation: Transverse with head to the left. Placenta: Placental position is anterior, without previa. Amniotic fluid index: 16.4 cm, normal range is 5-24 cm. heart rate: 140 beats per minute. Maternal cervical canal: 5.6 cm long. Normal lower limit is 2.5 cm. biometrics: Biparietal diameter: 19 weeks 5 days Head circumference: 19 weeks 6 days Abdominal circumference: 20 weeks 3 days Femur length: 20 weeks 4 days Estimated gestational age from initial scan: 19 weeks 3 days Composite gestational age from present scan: 20 weeks 1 day Estimated weight and percentile: 353 g; 93rd percentile Measurement variability for biometric dating: +/- 7 days from 14 weeks to 15 weeks 6 days gestation, +/- 10 days from 16 weeks to 21 weeks 6 days gestation, +/- 2 weeks from 22 weeks to 27 weeks 6 days gestation, +/- 3 weeks for 28 weeks gestation or later. weight reference: 4500 g or EFW >90/95% is considered macrosomia or large for gestational age. EFW <10% is small for gestational age. EFW 5% or less is considered intra-uterine growth restriction. Anatomic survey: Neuro: Ventricles are non-dilated at less than 10 mm. Cisterna magna is normal at 3-11 mm. Cerebellum is normal in size and morphology. Nuchal skin fold: Normal at less than 6 mm between 14-21 weeks gestational age. Face: Nose and lips, facial profile are normal. Spine: No evidence for spina bifida. Heart: 4-chambered heart is present, with normal ventricular outflow tracts. Diaphragm: Diaphragm is intact. Stomach: Left-sided stomach is present. Kidneys: No hydronephrosis. Normal is less than 5 mm in 2nd trimester, less than 7 mm in 3rd trimester. Cord: 3-vessel cord has orthotopic insertion. Bladder: Normal in size. Extremities: All 4 extremities identified. IMPRESSION: 1. Single living IUP redemonstrated and interval growth is upper limits of normal. 2. Normal anatomic survey. Dictated by: Sanjiv Mederos [facility] Interpreted: Bonilla Schroeder MD on 04/08/2020 at 9:46 Approved by: Bonilla Schroeder M.D. on 04/08/2020 at 11:22
== END ==
PROVIDERS: PCP Family Medicine; Referring Provider Family Medicine; Visit Provider Family Medicine
DX: Z36.89 Encounter for other specified antenatal screening (principal); Z3A.20 20 weeks gestation of pregnancy
CPT/HCPCS: 76811

== ENCOUNTER 2020-07-02 05:33 | Emergency (ER) | payer OTHER, MEDICAID, SELFPAY ==
--- NOTE | 2020-07-02 05:34 | ED_ITS ---
HPI - SOB/Dyspnea General Chief Complaint: Upper Respiratory Symptoms Stated Complaint: hard to breath, coughing Time Seen by Provider: 07/02/20 05:34 Source: patient and family Mode of arrival: Ambulatory Limitations: no limitations History of Present Illness HPI Narrative: 34-year-old female nonsmoker with history of seasonal allergies presents with her and a chief complaint of runny nose, nasal congestion, postnasal drip and a dry hacking cough since yesterday. She denies any fever chills. She denies any chest pain or sputum production. She denies any significant nausea, vomiting or diarrhea. She has been using Claritin and Flonase without much in the way of relief. She denies any history of asthma but does state that she gets a wheeze with allergies and also with upper respiratory infections. She denies any exposure to persons known to have COVID-19. She is 31 weeks MD Complaint: cough Onset (ago): day(s) Context: recent illness Severity: mild Consistency/Duration: constant Relieving factors: nothing Exacerbating factors: nothing Related Data Home oxygen amount: none Home Medications Medication Instructions Recorded Confirmed PNV cmb#95-ferrous fumarate-FA 1 tab PO QDAY #0 06/09/12 02/20/19 [] sertraline 100 mg PO DAILY 11/22/18 02/20/19 Allergies Allergy/AdvReac Type Severity Reaction Status Date / Time tramadol [TRAMADOL] AdvReac Mild Nausea Verified 02/20/19 05:08 Review of Systems Constitutional Constitutional: Denies chills, Denies fatigue, Denies fever(s), Denies frequent falls, Denies lethargy and Denies weakness Eyes Eyes: Denies change in vision, Denies eye discharge, Denies irritation and Denies loss of vision ENT Ears, Nose, Mouth, and Throat: Denies change in voice, Denies dizziness, Reports nasal congestion, Denies neck pain, Reports post nasal drip, Denies sore throat and Denies throat swelling Cardiovascular Cardiovascular: Denies chest pain, Denies irregular heart rhythm, Denies lightheadedness, Denies palpitations, Reports dyspnea, Denies dyspnea on exertion and Denies orthopnea Respiratory Respiratory: Reports cough, Reports dyspnea, Denies dyspnea on exertion and Reports wheezing Gastrointestinal Gastrointestinal: Denies abdominal pain, Denies change in bowel habits, Denies diarrhea, Denies nausea and Denies vomiting Musculoskeletal Musculoskeletal: Denies neck pain and Denies numbness Integumentary/Breasts Skin/Breast: Denies pruritus, Denies erythema, Denies rash and Denies wounds Neurologic Neurologic: Denies behavioral changes, Denies confusion, Denies dizziness, Denies frequent falls, Denies loss of vision, Denies numbness and Denies weakness Psychiatric Psychiatric: Denies anxiety, Denies behavioral changes, Denies confusion, Denies depression, Denies homicidal ideation and Denies suicidal ideation Endocrine Endocrine: Denies fatigue, Denies flushing and Denies palpitations Hematologic/Lymphatic Hematologic/Lymphatic: Denies easy bruising Allergic/Immunologic Allergic/Immunologic: Denies urticaria, Denies throat swelling and Reports wheezing Patient History Social History Smoking Status: Former smoker Smoking Status: Former smoker Substance Use Type: does not use Exam Narrative Exam Narrative: GENERAL: [34] year old patient appears stated age. Well- nourished, well-developed patient, in mild distress. HEAD: Atraumatic. Normocephalic. EYES: Pupils equal round and reactive. Extraocular motions intact. No scleral icterus. No injection or drainage. ENT: Clear postnasal drip, clear nasal congestion Throat without erythema, tonsillar hypertrophy or exudate. Airway patent. NECK: Trachea midline. Non tender CARDIOVASCULAR: Regular rate and rhythm without murmurs, gallops, or rubs. RESPIRATORY: No significant work of breathing, mild expiratory wheeze GASTROINTESTINAL: Abdomen soft, non-tender, nondistended. EXTREMITIES: No edema or joint tenderness. BACK: Nontender without deformity or crepitance. No flank tenderness. NEURO: AOx3. SKIN: No rash or erythema of visible areas Initial Vital Signs Initial Vital Signs: Vital Signs Temperature 98.0 F 07/02/20 05:38 Pulse Rate 84 07/02/20 05:38 Respiratory Rate 16 07/02/20 05:38 Blood Pressure 113/65 07/02/20 05:38 Pulse Oximetry 97 07/02/20 05:38 Scores ABCD2 Citation: Lancet. 2006Nov 19;369(0693):283-92. Validation and refinement of scores to predict very early stroke risk after transient ischaemic attack. Tomy SC1, Ashley PM, KovacsArcelia CAPUTO, Russ MF, Marciano JS, Ayush AL, Bartolo S. Course Course Course Narrative: significant improvement after the above stated therapies Orders Ordered: ED Orders 07/02/20 05:58 COVID19 -ED/INPAT/OR/L&D Stat Discontinued Medications Albuterol/Ipratropium (Combivent Prepack) 1 box MISC SEEINSTR ONE Stop: 07/02/20 05:43 Last Admin: 07/02/20 05:48 Dose: 1 box Documented by: BILLY Vital Signs Vital signs: Vital Signs - 8 hr 07/02/20 05:38 07/02/20 06:25 Temperature 98.0 F Pulse Rate 84 87 Respiratory Rate 16 16 Blood Pressure 113/65 110/69 Pulse Oximetry 97 94 MDM - SOB/Dyspnea Lab Data Labs: Lab Results 07/02/20 Range/Units 05:58 COVID-19 PCR Negative (Negative) Discharge Plan Departure Patient Disposition: Home Clinical Impression: Upper respiratory infection Discharge Date/Time: 07/02/20 06:25 Instructions: Common Cold Activity Restrictions/Additional Instructions: *You have been diagnosed with [viral upper respiratory infection with postnasal drip and bronchospastic cough] *What to do: *Take medications as directed: Consider altering the ajde-fln-fulmjph antihistamine you are on which will help dry the secretions which are likely causing your cough *Follow up with your primary care provider in 2-3 days, call for an appointment. Let them know you were seen in the Emergency Department and that we ask that you be seen in follow up *Return to ER if you should have any new, worsening or concerning symptoms Prescriptions: No Action PNV cmb#95-ferrous fumarate-FA [] 28 mg iron- 800 mcg Tablet 1 tab PO QDAY Qty: 0 RF: 0 sertraline 100 mg Tablet 100 mg PO DAILY RF: 0 Referrals: Daphney Bahena MD [Primary Care Provider] -
[2020-07-02 05:38] VITALS: BP 113/65; PULSE 84; RESP 16; TEMP 36.7; O2SAT 97; BMI 27.4
[2020-07-02] MEDS: IPRATROPIUM/ALBUTEROL PREPACK 1 BOX MISC (05:48)
[2020-07-02 06:17] LABS: COVID19 -Nasal RAPID Negative (Negative)
[2020-07-02 06:25] VITALS: BP 110/69; PULSE 87; RESP 16; O2SAT 94
== END 2020-07-02 06:25 | disposition home or self-care (01) ==
PROVIDERS: Emergency Provider Emergency Medicine; PCP Family Medicine
DX: J06.9 Acute upper respiratory infection, unspecified (principal); R09.82 Postnasal drip; R05 Cough
CPT/HCPCS: 87635; 99281; 99283

== ENCOUNTER → 2020-07-24 11:13 | Outpatient (CLI) | payer OTHER, MEDICAID, SELFPAY ==
--- NOTE | 2020-07-24 | DI.US.S_ITS ---
PROCEDURE: US OB LIMITED INDICATIONS: CONTRACTIONS 34 WEEKS OUTSIDE/PRIOR DATING DATA: Last menstrual period (LMP): 11/24/2019. First dating scan (date and location): 01/07/2020. Estimated date of delivery (KADEEM) from first dating scan: 08/30/2020. TECHNIQUE: Real-time scanning was performed of the fetus, with image documentation and biometric measurements. Endovaginal scanning: Not performed. COMPARISON: [facility], OB LIMITED, 02/15/2019, 8:27. FINDINGS: General: A single living intrauterine gestation is present. Presentation: Vertex. Placenta: Placental position is anterior, without previa. Amniotic fluid index: 11.4 cm, normal range is 5-24 cm. Largest pocket 4 cm. heart rate: 140 beats per minute. Maternal cervical canal: 3.5 cm long. Normal lower limit is 2.5 cm. No funneling. biometrics: Biparietal diameter: 8.6 cm, 36 weeks 1 day Head circumference: 33 cm, 37 weeks 0 days Abdominal circumference: 31 cm, 35 weeks 0 days Femur length: 6.7 cm, 34 weeks 2 days Estimated gestational age from initial scan: 34 weeks 5 days Composite gestational age from present scan: 35 weeks 4 days Estimated weight and percentile: 2593 g, 57th percentile Measurement variability for biometric dating: +/- 7 days from 14 weeks to 15 weeks 6 days gestation, +/- 10 days from 16 weeks to 21 weeks 6 days gestation, +/- 2 weeks from 22 weeks to 27 weeks 6 days gestation, +/- 3 weeks for 28 weeks gestation or later. weight reference: 4500 g or EFW >90/95% is considered macrosomia or large for gestational age. EFW <10% is small for gestational age. EFW 5% or less is considered intra-uterine growth restriction. IMPRESSION: 1. Beauchamp living intrauterine at 35 weeks 4 days based on today's ultrasound. This is concordant with the prior ultrasound dating +/-3 weeks. Vertex position. 2. Normal placenta and amniotic fluid. Dictated by: Cabrera Ortiz M.D. on 07/24/2020 at 13:36 Approved by: Cabrera Ortiz M.D. on 07/24/2020 at 13:40
== END ==
PROVIDERS: PCP Family Medicine; Referring Provider Family Medicine; Visit Provider Family Medicine
DX: O62.9 Abnormality of forces of labor, unspecified (principal); Z3A.35 35 weeks gestation of pregnancy
CPT/HCPCS: 76815

== ENCOUNTER 2020-07-29 09:49 | Outpatient (CLI) | payer OTHER, MEDICAID, SELFPAY | END 2020-07-29 10:45 | disposition home or self-care (01) | LOC: LABOR 10:01 → OB 07-30 14:56 | PROVIDERS: PCP Family Medicine; Referring Provider Family Medicine; Visit Provider Family Medicine | DX: O36.8130 Decreased fetal movements, third trimester, not applicable or unspecified (principal); M25.552 Pain in left hip; M25.551 Pain in right hip; M54.9 Dorsalgia, unspecified; R51.9 Headache, unspecified; Z3A.35 35 weeks gestation of pregnancy | CPT/HCPCS: 59025; G0378; G0379 ==

== ENCOUNTER → 2020-08-05 11:56 | Outpatient (ROUT) | payer OTHER, MEDICAID, SELFPAY | PROVIDERS: PCP Family Medicine; Visit Provider Family Medicine | DX: Z34.80 Encounter for supervision of other normal pregnancy, unspecified trimester (principal) | CPT/HCPCS: 87081; 87147 ==

== ENCOUNTER 2020-08-18 15:46 | Observation (INO) | payer OTHER, MEDICAID, SELFPAY | END 2020-08-18 16:20 | disposition home or self-care (01) | PROVIDERS: Admitting Provider Family Medicine; PCP Family Medicine; Referring Provider Family Medicine; Visit Provider Family Medicine | CPT/HCPCS: 59025; G0378; G0379 ==

== ENCOUNTER 2020-08-19 03:52 | Inpatient (IN) | payer OTHER, MEDICAID, SELFPAY ==
[2020-08-19 04:33] LABS: COVID19 -Nasal RAPID Negative (Negative)
[2020-08-19 04:35] LABS: Add Manual Diff / Slide Review NO; Basophils Absolute Auto 100 /uL (0-100); Basophils Percent Auto 1.3 % (0-2); Eosinophils Absolute Auto 0 /uL (0-450); Eosinophils Percent Auto 0.3 % (2-4); Hematocrit 39.8 % (36-46); Hemoglobin 13.2 g/dL (12.0-16.0); Lymphocytes Absolute Auto 3100 /uL (1100-4500); Lymphocytes Percent Auto 30.4 % (25-40); Mean Corpuscular HGB Conc 33.2 % (30-36); Mean Corpuscular Hemoglobin 29.1 PG (26-34); Mean Corpuscular Volume 87.5 fL (80-100); Monocytes Absolute Auto 600 /uL (0-900); Monocytes Percent Auto 6.3 % (3-14); Neutrophils Absolute Auto 6300 /uL (1500-7000); Neutrophils Percent Auto 61.7 % (50-75); Platelet Count 210 X10^3/uL (150-400); Red Blood Cell Count 4.55 X10^6/uL (4.0-5.2); Red Cell Distribution Width 13.9 % (11.6-14.8); White Blood Cell Count 10.2 X10^3/uL (4.5-11.0)
[2020-08-19] MEDS: OXYCODONE/ACETAMINOPHEN 5/325 TABLET 1 TAB PO ×3 (05:15→21:14)
--- NOTE | 2020-08-19 05:20 | PM.OBPRVD ---
Labor & Delivery Delivery date: 08/19/20 Intrapartal events: Precipitous Labor < 3 hours Cervical ripening method: none Induction method: none Delivery monitor: external FHT and external uterine Route of delivery: L&D Laceration Description: Perineal - 2nd Degree Delivery repair: chromic Estimated blood loss (mL): 300 Anesthesia type: None Complications: none precipitous delivery Narrative: Identifying data: 34-year-old at 38 and 3 7th weeks estimated gestational age based on EDC of 08/30/2020 based on a 6 week ultrasound presents to Labor and delivery with complaints of painful uterine contractions. No history of rupture membranes but she has had bloody show. Patient was found to be 6 cm dilated on presentation to Labor and delivery with intact bag of water and reassuring heart tones. There were no complications of the . Patient O positive, rubella immune, glucose tolerance test 51, GBS positive Stage I: 43 minutes Patient was noted to be in active labor when she presented to Labor and delivery and was admitted 3:52 a.m.. She was found to be 6 cm dilated and she was admitted and anesthesia was contacted for epidural. Patient was evaluated in the clinic yesterday was found to be 2-3 cm dilated, -2 station, 60% effaced. NST was reactive. Patient was awakened at 1:50 a.m. with strong contractions and she noted bloody show and headed in at 11:00 p.m.. Her contractions continued to progress in terms of intensity. Soon after arrival patient was complaining of the need to push and rapidly progressed to complete which was not verified by time because at the same time head was presenting. She had a fore bag that presented initially and rupture membranes at the time of delivery clear fluid. She did not receive any antibiotics. Minimal heart monitoring was performed due to short time in hospital and reassuring strip was present. Stage II lasted 1 minutes. Patient spontaneously ruptured at 4:34 a.m. and gave 1 push and delivered the baby at 4:35 a.m.. Apgars were 8 at 1 minute 9 at 5 minutes and birthweight is pending at the time this dictation. I arrived immediately after baby was delivered. Baby was vigorous and placed in mom's arms. Stage III: 5 minutes Normal spontaneous vaginal delivery of an intact placenta with a three-vessel cord with mild calcifications. There was a small second-degree perineal laceration that was repaired with 1% lidocaine for anesthesia and 3-0 and 2-0 chromic in a usual fashion. The vaginal sidewall showed no evidence of laceration and no laceration of the cervix. Ten milliunits of Pitocin were placed IM. Patient had a total of 300 cc of blood loss. At the time of this dictation both mom and baby are in stable condition
--- NOTE | 2020-08-19 05:29 | P.HPOB_ITS ---
OB HPI Date/Time Date of admission: 08/19/20 Date Patient Seen: 08/19/20 Time Patient Seen: 04:29 History of Present Condition Chief complaint: Evaluation of labor : 3 Para: 2 Estimated Date of Delivery: 08/30/20 Estimated Gestational Age (weeks): 38 wk Narrative: Marian Sood is a 34 year old female History of Present care: good care Dating criteria: LMP confirmed by 1st trimester US Ultrasounds: normal 1st trimester US and normal mid trimester US Obstetrical complications: none Medical complications: none Preadmission Labs Blood type: O (+) positive -: Antibody screen: negative, Cystic fibrosis screen: negative, GBS status: positive, HBsAG: negative, HIV: negative, HSV 1: negative, HSV 2: positive and RPR/VDLR: negative -: Chlamydia screen: not detected and Gonorrhea screen: not detected -: Rubella: immune and Varicella: immune HCAB: negative PAP: Normal Sequential screen: Nuchal translucency done but did not complete the sequential screen. Maternal serum AFP negative Urine: Negative 1 hr GTT: 51 Narrative: Patient had early care. This was a planned . She was on vitamins prior to conception. There were no complications of . Blood pressures were good and she had a normal weight gain. 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 Prior (ies) History: Past OB history 1. There 03/29/2012 at 40 weeks gestation normal spontaneous vaginal delivery of a viable male infant weighing 7 lb 9 oz named Joseluis at [facility] with epidural 2. 02/20/2019 at 38 and 3 7th weeks gestation normal spontaneous vaginal delivery of a viable male infant named Dr. Brennan weighing 7 lb 3.3 oz at [facility] with epidural Evaluation Evaluation Laboratory results: Laboratory Tests 08/19/20 08/19/20 04:05 04:20 WBC 10.2 RBC 4.55 Hgb 13.2 Hct 39.8 MCV 87.5 MCH 29.1 MCHC 33.2 RDW 13.9 Plt Count 210 Neut % (Auto) 61.7 Lymph % (Auto) 30.4 [place] % (Auto) 6.3 Eos % (Auto) 0.3 L Baso % (Auto) 1.3 Neut # (Auto) 6300 Lymph # (Auto) 3100 [place] # (Auto) 600 Eos # (Auto) 0 Baso # (Auto) 100 COVID-19 PCR Negative PFSH Social History Smoking Status: Former smoker Meds Home Medications and Allergies Home Medications Medication Instructions Recorded Confirmed Type PNV cmb#95-ferrous fumarate-FA 1 tab PO QDAY #0 06/09/12 02/20/19 History [] sertraline 100 mg PO DAILY 11/22/18 02/20/19 History Allergies Allergy/AdvReac Type Severity Reaction Status Date / Time tramadol [TRAMADOL] AdvReac Mild Nausea Verified 08/19/20 03:59 Review of Systems Review of Systems Narrative: No leaking of fluid. No fever. No cough. No chills. She has had headaches but no significant swelling and no abdominal pain other than contractions. ROS: Yes All systems reviewed with the patient and are negative except as otherwise documented Exam Narrative Exam Narrative: Eighth febrile vital signs are stable HEENT unremarkable Neck : Supple Chest: Clear to auscultation without wheezes rhonchi or crackles Cor: Regular rate and rhythm without any murmur Abdomen: Positive bowel sounds, soft, nontender Extremities: No edema DTRs and Objective Labs Result Diagrams: 08/19/20 04:20 Labs: Laboratory Results - last 24 hr 08/19/20 08/19/20 04:05 04:20 WBC 10.2 RBC 4.55 Hgb 13.2 Hct 39.8 MCV 87.5 MCH 29.1 MCHC 33.2 RDW 13.9 Plt Count 210 Neut % (Auto) 61.7 Lymph % (Auto) 30.4 [place] % (Auto) 6.3 Eos % (Auto) 0.3 L Baso % (Auto) 1.3 Neut # (Auto) 6300 Lymph # (Auto) 3100 [place] # (Auto) 600 Eos # (Auto) 0 Baso # (Auto) 100 COVID-19 PCR Negative Assessment and Plan Assessment and Plan Assessment and Plan narrative: [age] years she 3 P2 at 3837 weeks estimated gestational age in active labor. Unremarkable . GBS positive but unfortunately antibiotics were not administered prior to delivery due to precipitous delivery. COVID negative. O-positive, rubella immune. Status post Tdap and flu shot. 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 Patient desires a tubal ligation. Consents have been signed. We will make her NPO with hopes to do this today. Assessment 2. Depression stable on Zoloft plan continue the same Assessment 3. Hypothyroidism stable on levothyroxine Plan: Continue the same
[2020-08-19 07:21] VITALS: BP 132/81
[2020-08-19] MEDS: LEVOTHYROXINE 75 MCG TABLET PO (08:13)
[2020-08-19] MEDS: LACTATED RINGERS 1,000 ML 1000 ML IV (12:00)
[2020-08-19] MEDS: IBUPROFEN 600 MG TABLET PO ×2 (13:04→19:23)
[2020-08-19] MEDS: LANOLIN OINT 7 GM 1 APPLIC TOP (13:04)
[2020-08-19] MEDS: DOCUSATE 100 MG CAPSULE PO (13:05)
[2020-08-19] MEDS: PRENATAL VIT,CALC/IRON/FOLIC 1 TABLET 1 TAB PO (13:08)
[2020-08-19] MEDS: ACETAMINOPHEN 325 MG TABLET 650 MG PO (15:53)
[2020-08-19] MEDS: SERTRALINE 50 MG TABLET 100 MG PO (21:14)
[2020-08-20] MEDS: IBUPROFEN 600 MG TABLET PO ×2 (01:13→09:41)
[2020-08-20] MEDS: OXYCODONE/ACETAMINOPHEN 5/325 TABLET 1 TAB PO (01:15)
[2020-08-20 06:25] LABS: Add Manual Diff / Slide Review NO; Basophils Absolute Auto 0 /uL (0-100); Basophils Percent Auto 0.2 % (0-2); Eosinophils Absolute Auto 100 /uL (0-450); Eosinophils Percent Auto 0.8 % (2-4); Hematocrit 35.2 % (36-46); Hemoglobin 11.8 g/dL (12.0-16.0); Lymphocytes Absolute Auto 2800 /uL (1100-4500); Lymphocytes Percent Auto 30.4 % (25-40); Mean Corpuscular HGB Conc 33.6 % (30-36); Mean Corpuscular Hemoglobin 29.5 PG (26-34); Mean Corpuscular Volume 87.8 fL (80-100); Monocytes Absolute Auto 500 /uL (0-900); Monocytes Percent Auto 5.2 % (3-14); Neutrophils Absolute Auto 5900 /uL (1500-7000); Neutrophils Percent Auto 63.4 % (50-75); Platelet Count 170 X10^3/uL (150-400); Red Blood Cell Count 4.01 X10^6/uL (4.0-5.2); Red Cell Distribution Width 14.2 % (11.6-14.8); White Blood Cell Count 9.4 X10^3/uL (4.5-11.0)
[2020-08-20] MEDS: LEVOTHYROXINE 75 MCG TABLET PO (06:35)
[2020-08-20] MEDS: DOCUSATE 100 MG CAPSULE PO (09:41)
[2020-08-20] MEDS: PRENATAL VIT,CALC/IRON/FOLIC 1 TABLET 1 TAB PO (09:41)
--- NOTE | 2020-08-20 09:46 | P.DS_ITS ---
Discharge Providers Provider Date of admission: 08/19/20 03:52 Discharge Date: 08/20/20 Primary care physician: Daphney Bahena MD Consults: 08/19/20 03:57 Consult to Anesthesiology Urgent Comment: Consulting Provider: Anesthesiologist Reason for consultation: labor pain management 08/19/20 05:39 Consult to Physician Routine Comment: Consulting Provider: Alma Bartlett Reason for consultation: desired infertility Has provider been notified: No 08/20/20 05:16 Consult to Foreign Exchange Trader Routine Comment: Discharge provider: Daphney Bahena MD Summary Hospital Course Date Patient Seen: 08/20/20 Time Patient Seen: 09:47 Procedures: Normal spontaneous vaginal delivery Hospital Course: Patient presented to Labor and delivery in active labor. She was 6 cm dilated at presentation and rapidly had precipitous delivery. She did not have epidural. She had no complications. She had a routine course and was discharged home on day 1. Peripartum Data Delivery Method: Natural Vaginal Laceration Description: Perineal - 2nd Degree Procedures: Normal spontaneous vaginal delivery complications: none Time Spent with Patient Time attestation: Total time spent providing and/or coordinating discharge services:30 minutes Objective Labs Result Diagrams: 08/20/20 06:15 Labs: Laboratory Results - last 24 hr 08/20/20 06:15 WBC 9.4 RBC 4.01 Hgb 11.8 L Hct 35.2 L MCV 87.8 MCH 29.5 MCHC 33.6 RDW 14.2 Plt Count 170 Neut % (Auto) 63.4 Lymph % (Auto) 30.4 [place] % (Auto) 5.2 Eos % (Auto) 0.8 L Baso % (Auto) 0.2 Neut # (Auto) 5900 Lymph # (Auto) 2800 [place] # (Auto) 500 Eos # (Auto) 100 Baso # (Auto) 0 Exam Narrative Exam Narrative: Afebrile vital signs are stable HEENT unremarkable Chest: Clear to auscultation Cor: Regular rate and rhythm Abdomen: Positive bowel sounds, soft, nontender, uterus well below the umbilicus Extremities no edema pulses intact Discharge Plan Discharge Plan Patient Disposition: Home Discharge orders & Medications Prescriptions: New docusate sodium [DOK] 100 mg Capsule 100 mg PO DAILY Qty: 30 RF: 1 oxycodone-acetaminophen 5-325 mg Tablet 1 tab PO Q4HR PRN (Reason: Pain, Moderate (4-6)) Qty: 20 RF: 0 Continued PNV cmb#95-ferrous fumarate-FA [] 28 mg iron- 800 mcg Tablet 1 tab PO QDAY Qty: 0 RF: 0 sertraline 100 mg Tablet 100 mg PO DAILY RF: 0 Follow up/Referrals: Daphney Bahena MD [Primary Care Provider] - Diet/Activity/Treatments Activity: pelvic rest, no heavy lifting Discharge Data Primary Care Provider: Daphney Bahena
[2020-08-20 10:17] VITALS: BP 128/83; PULSE 77; RESP 16; TEMP 36.7
== END 2020-08-20 10:50 | disposition home or self-care (01) | DRG 560 ==
PROVIDERS: Admitting Provider Family Medicine; PCP Family Medicine; Referring Provider Family Medicine; Visit Provider Family Medicine
DX: O62.3 Precipitate labor (principal); Z3A.38 38 weeks gestation of pregnancy; Z37.0 Single live birth; O70.1 Second degree perineal laceration during delivery; O99.824 Streptococcus B carrier state complicating childbirth; O98.32 Other infections with a predominantly sexual mode of transmission complicating childbirth; B00.9 Herpesviral infection, unspecified; F32.9 Major depressive disorder, single episode, unspecified; E03.9 Hypothyroidism, unspecified
CPT/HCPCS: 36415; 59025; 85025; 86850; 86900; 86901; 87635; G0378; G0379

== ENCOUNTER → 2020-11-06 09:03 | Outpatient (CLI) | payer OTHER, MEDICAID, SELFPAY ==
[2020-11-06 09:28] LABS: COVID19 -Nasal RAPID Negative (Negative)
== END ==
PROVIDERS: PCP Family Medicine; Visit Provider Obstetrics & Gynecology
DX: Z01.812 Encounter for preprocedural laboratory examination (principal); Z20.822 Contact with and (suspected) exposure to COVID-19
CPT/HCPCS: 87635

== ENCOUNTER 2020-11-07 11:43 | Day surgery (SDC) | payer OTHER, MEDICAID, SELFPAY ==
[2020-11-07] VITALS (8 sets, daily range): BP systolic 105–118; BP diastolic 56–79; PULSE 68–85; RESP 10–18; TEMP 36.3–37.2; O2SAT 98–100; BMI 25.0
--- NOTE | 2020-11-07 | PATH_ITS ---
[facility] Accession Number: [id number] . 01 Material submitted: . fallopian tube - BILATERAL FALLOPIAN TUBES . 02 Diagnosis: Bilateral Fallopian Tubes, Bilateral Salpingectomy: Bilateral fimbriated fallopian tubes. No evidence of neoplasm. MRV 11/12/2020 1242 Local . 02 Electronically signed: . Dilshad Salazar MD, PhD, Pathologist NPI- [id number] . 01 Gross description: . Received in one formalin-filled container, labeled with the patient's name and labeled bilateral fallopian tubes, are two fimbriated, cylindrical-shaped portions of tissue. The first measures 6.0 x 0.7 x 0.6 cm. Four distribution sales representative sections are submitted in cassette A1. The second piece measures 6.0 x 0.9 x 0.8 cm. Four distribution sales representative sections are submitted in cassette A2. ([id number]) /[facility] 11/11/2020 0222 Local . 02 Microscopic: . Complete cross-sections of fallopian tube are seen in each tubular structure submitted. . 02 Pathologist provided ICD-10: Z30.2 . 02 CPT . 875375 Performed at: 01 [facility] [address], [place], [place] [id number] MD Sergey Marroquin MD Phone: [phone] Performed at: 02 [facility] [address] [place], [place] [id number] MD Marium Abdi MD Phone: [phone]
[2020-11-07] MEDS: LACTATED RINGERS 1,000 ML 42 ML IV ×2 (11:52→13:11)
--- NOTE | 2020-11-07 11:59 | PM.PREOP ---
Pre-operative Note COVID-19 COVID-19 status: Negative Result date/Date tested (Pos, Neg/Pending): 11/06/20 Interval Note History & Physical reviewed/Exam performed by Physician: Yes Changes to H&P: No
--- NOTE | 2020-11-07 12:55 | SUR.OPER ---
Lithotomy on padded OR bed, head on pillow, arms secured on padded arm boards at <90 degrees abduction. Legs secured in padded yellow fins stirrups.
[2020-11-07] MEDS: LIDOCAINE 1% 30 ML INJ (13:05)
[2020-11-07] MEDS: fentaNYL 100 MCG/2 ML INJ IV ×2 (13:53→14:03)
--- NOTE | 2020-11-07 13:53 | PM.OP.1 ---
Operative Date/Time/Diagnoses Date of procedure: 11/07/20 Time of procedure: 13:53 Pre-op diagnosis: desires permanent sterilization Post-op diagnosis: same Procedure & Clinicians Procedure: laparoscopic bilateral salpingectomy Same procedure as scheduled: Yes Indications: desires permanent sterilization Surgeon: Garima Bartlett Filter Tank Tender Helper Head: Michelle Mcconnell Anesthesia Type: General Operative Notes Findings: normal uterus, tubes, and ovaries Closure Type: primary Specimen(s): other (bilateral fallopian tubes) Estimated Blood Loss (mL): 5 Procedure in detail: After proper consents were obtained, the patient was taken to the operating room. General anesthesia was induced, and she was placed in the dorsal lithotomy position and prepped and draped in the normal sterile fashion. A barreto catheter was placed, and a speculum placed in the patient's vagina. A single tooth tenaculum was applied to the anterior lip of the cervix, and hegar dilators used to dilate the cervix to 6mm with gentle pressure. A uterine manipulator was gently inserted and the balloon inflated to 5ccs. The tenaculum and speculum were removed from the vagina. Attention was then turned to the abdomen, where 1cc of .25% marcaine with epinephrine was used to infiltrate the skin just below the umbilicus. A scalpel was used to make a 10mm incision, the subcutaneous tissue was dissected to the level of the fascia, the fascia grasped and elevated with two lopez clamps. A thin fold of fascia between the clamps was incised with a scalpel, and the fasica marked with 0 vicryl. The fasia was stretched bluntly with a lopez clamp, and retracted to visualize the underlying peritoneum. The peritoneum was grasped with garima clamps, elevated, and a thin fold incised with the metzenbaum scissors. The peritoneum was stretched bluntly and omentum visualized, and a 10mm blunt trochar and sleeve advanced into the abdominal cavity under direct visualization. Intraabdominal placement was initially noted with low pressure on insufflation, but was noted to have dislodged. The trochar and sleeve were removed, retractors used to visualize the abdominal cavity, and the trochar replaced with intraabdominal placement confirmed with the laparoscope. The abdomen was insufflated to 15mmHg with CO2 gas. Abdominal survey at this time was normal, and 5mm lateral ports were placed under direct visualization. These were placed on the left and right, 8cm from the umbilicus and after infiltration of 1mm of local anesthetic. The patient was placed in trendelenburg position, and a blunt probe used to gently push the bowel out of the pelvis. The ovaries and fallopian tubes appeared normal bilaterally. An atraumatic grasper was used to elevate the right fallopian tube, and a PK device was used to amputate this along the mesosalpinx, which was removed from the abdomen. The same procedure was performed with the left fallopian tube. Close inspection revealed good hemostasis bilaterally. The fallopian tubes were removed through the umbilical port. A repeat abdominal survey was normal. The laparoscope was removed from the abdomen and the gas allowed to escape. The fascia at the umbilical port site was closed with 0 vicryl, and the skin at all 4 incisions closed with 4-0 biosyn, then covered with steri strips and bandages. The barreto catheter and uterine manipulator were removed. The patient tolerated the procedure well, and was taken to the PACU in stable condition. IVF: 1L LR UOP: 200 clear urine EBL: <20ccs Complications: none Post-operative Condition: stable Disposition: PACU Plan for aftercare: Routine postoperative care
--- NOTE | 2020-11-07 14:07 | SUR.PHASEI ---
Pt arrived with patent airway, awoke, crying, c/o pain medicated with fentanyl. Bear hugger placed for shakes, now resolved.
[2020-11-07] MEDS: OXYCODONE/ACETAMINOPHEN 5/325 TABLET 1 TAB PO (14:19)
== END 2020-11-07 15:24 | disposition home or self-care (01) ==
PROVIDERS: PCP Family Medicine; Referring Provider Obstetrics & Gynecology; Visit Provider Obstetrics & Gynecology
PROC: 0UT74ZZ Resection of Bilateral Fallopian Tubes, Percutaneous Endoscopic Approach (ICD-10-PCS; CPT 58661; principal; 2020-11-07 14:45)
DX: Z30.2 Encounter for sterilization (principal)
CPT/HCPCS: 58661; 81025; J0330; J1100; J1885; J2405; J2704; J3010

== ENCOUNTER → 2021-12-29 09:45 | Outpatient (CLI) | payer OTHER, MEDICAID, SELFPAY ==
--- NOTE | 2021-12-29 09:47 | DI.US.S_ITS ---
PROCEDURE: US PELVIC COMPLETE INDICATIONS: DUB TECHNIQUE: Real-time scanning was performed of the pelvic organs, with image documentation. Additional endovaginal scanning was necessary due to incomplete visualization of the adnexal and endometrial structures by transabdominal scanning. COMPARISON: [facility], , PELVIC COMPLETE, 09/23/2017, 0:32. FINDINGS: Uterus: Uterus is anteverted and normal in size at 9.5 x 4.8 x 5.8 cm. The myometrium is homogeneous. The endometrium measures 16 mm combined thickness. No uterine masses. Ovaries: The right ovary measures 2.6 x 1.8 x 2.1 cm. The left ovary measures 2.9 x 2.1 x 2.8 cm. There is a complex left ovarian cyst measuring 20 mm with peripheral vascularity. Other: No pathologic free abdominal or pelvic fluid. IMPRESSION: No acute process. We strive to produce accurate, complete, and clear reports of imaging services. To assist us in improving patient care, this report was composed using standard report templates and voice recognition software. Therefore, it may contain abnormal punctuation, insertions and/or omissions. Occasional wrong-word or sound-alike substitutions may occur. Though we review the report and make efforts to correct it, we do recommend that the report be read carefully in proper context to recognize any text inaccuracies. Dictated by: David De La Torre M.D. on 12/29/2021 at 11:49 Approved by: David De La Torre M.D. on 12/29/2021 at 11:50
== END ==
PROVIDERS: PCP Family Medicine; Referring Provider Family Medicine; Visit Provider Family Medicine
DX: N92.1 Excessive and frequent menstruation with irregular cycle (principal); N83.292 Other ovarian cyst, left side
CPT/HCPCS: 76830; 76856